=== PATIENT | female | born 1985 | race Two or more races ===

== ENCOUNTER 2023-08-01 10:58 | Emergency (ER) | payer OTHER ==
[2023-08-01 11:32] VITALS: BP 136/89; PULSE 93; RESP 18; TEMP 98.7; BMI 26.6
[2023-08-01 13:02] LABS: BASO % 0.4 % (0-2.0); HEMATOCRIT 40.9 % (32.4-45.2); HEMOGLOBIN 13.9 GM/dL (10.7-15.3); LYMPH % 18.9 % (8-40); MCH 29.6 pg (25.7-33.7); MEAN CELL VOLUME 87.1 fl (80-96); MEAN PLT VOLUME 7.2 fl (7.5-11.1); MONO % 5.6 % (3.8-10.2); NEUT % 74.1 % (42.8-82.8); PLATELET COUNT 398 10^3/uL (134-434); RDW 14.8 % (11.6-15.6); WHITE BLOOD COUNT 8.7 K/mm3 (4.0-10.0)
[2023-08-01 13:28] LABS: POTASSIUM 4.4 mmol/L (3.5-5.1)
[2023-08-01 13:30] LABS: CALCIUM 9.1 mg/dL (8.5-10.1)
[2023-08-01 13:31] LABS: ALBUMIN 3.5 g/dl (3.4-5.0)
[2023-08-01 13:34] LABS: CREATININE 0.5 mg/dL (0.55-1.3)
[2023-08-01 13:35] LABS: BILIRUBIN,TOTAL 0.5 mg/dL (0.2-1); TOT PROT 7.2 g/dl (6.4-8.2)
[2023-08-01 15:48] LABS: URINE APPEARANCE CLEAR; URINE BILIRUBIN NEGATIVE (NEGATIVE); URINE COLOR YELLOW; URINE GLUCOSE (UA) NEGATIVE (NEGATIVE); URINE KETONE NEGATIVE (NEGATIVE); URINE LEUK ESTERASE NEGATIVE (NEGATIVE); URINE NITRITE NEGATIVE (NEGATIVE); URINE PROTEIN NEGATIVE (NEGATIVE); URINE UROBILINOGEN 0.2 mg/dL (0.2-1.0)
== END 2023-08-01 17:00 | disposition home or self-care (01) ==
LOC: JER 10:58
DX: O20.9 Hemorrhage in early pregnancy, unspecified (principal); O26.891 Other specified pregnancy related conditions, first trimester; R11.0 Nausea; Z3A.09 9 weeks gestation of pregnancy
CPT/HCPCS: 36415; 76801-TC; 80053; 81003; 84702; 85025; 86850; 86900; 86901; 87086; 99284-25